=== PATIENT | female | born 1970 | race Caucasian/White ===

== ENCOUNTER 2018-01-14 15:37 | Observation (INO) ==
[2018-01-14] MEDS ORDERED: SODIUM CHLORIDE 0.9% 1,000 ML IV STA (16:08)
[2018-01-14] MEDS ORDERED: ONDANSETRON 4 MG/2 ML VIAL IV STA (16:08)
[2018-01-14 16:31] LABS: Basophils % 0.2 % (0.0-0.8); Eosinophils # 0.2 10*3/uL (0.0-0.87); Eosinophils % 1.9 % (0.00-10.9); Hematocrit 37.1 VOL% (35.7-47.0); Hemoglobin 12.8 GM/DL (12.0-16.0); Immature Granulocytes % 0.3 %; Immature Granulocytes Absolute 0.03 #; Lymphocytes # 1.8 10*3/uL (1.4-4.0); Lymphocytes % 17.9 % (21.3-54.2); Mean Corpuscular HGB Conc 34.5 GM/DL (32-36); Mean Corpuscular Hemoglobin 32 PG (27-34); Mean Corpuscular Volume 92.5 FL (87-102); Mean Platelet Volume 12.5 FL (9.6-12.0); Monocytes # 0.7 10*3/uL (0.11-0.8); Neutrophils # 7.4 10*3/uL (1.4-7.4); Neutrophils % 72.7 % (38.7-73.9); Platelet Count 214 T/CUMM (130-400); Red Blood Count 4.01 MC/CUMM (3.8-5.5); Red Cell Distribution Width 14.7 % (9.3-17.3); White Blood Count 10.2 T/CUMM (4-12)
[2018-01-14 16:34] LABS: Apearance,Urine CLOUDY (Clear); Bacteria,Urine Occasional /HPF (Few); Bilirubin,Urine Negative (Negative); Blood, Urine Negative (Negative); Glucose,Urine (UA) >=500 mg/dL (Negative); Ketones,Urine 5 mg/dL (Negative); Mucus,Urine Occasional /LPF (Occasional); Nitrite,Urine Negative (Negative); Protein,Urine Negative; RBC,Urine 2 /HPF (0-4); Squamous Epithelial Cell,Urine Moderate /HPF (0-10); Urine Color Yellow (Yellow); Urine Specific Gravity 1.025 (1.001-1.035); Urine Urobilinogen < 2.0 EU/DL (0.2-1.0); WBC,Urine <1 /HPF (0-6)
[2018-01-14] MEDS ORDERED: DEXTROSE 50% 25 GM/50 ML VIAL IV PRN ×2 (16:59→20:01)
[2018-01-14] MEDS ORDERED: GLUCAGON 1 MG VIAL IM PRN ×2 (16:59→20:01)
[2018-01-14 17:17] LABS: Albumin 3.5 G/DL (3.4-5.0); Bilirubin,Total 0.6 MG/DL (0.2-1.0); Calcium 9.4 MG/DL (8.5-10.1); Osmolality,Calculated 284.3 MOS/KG (273-304); Potassium 3.5 MMOL/L (3.5-5.1); Total Protein 8.1 G/DL (6.4-8.3)
[2018-01-14] MEDS ORDERED: ACETAMINOPHEN 325 MG TABLET PO PRN (20:01)
[2018-01-14] MEDS ORDERED: ONDANSETRON 4 MG/2 ML VIAL IV PRN (20:01)
[2018-01-14] MEDS ORDERED: HYDROmorphone 2 MG/1 ML VIAL IV PRN (20:01)
[2018-01-14] MEDS ORDERED: ATORVASTATIN 40 MG TABLET PO SCH (22:27)
[2018-01-14] MEDS: cefOXitin 2,000 MG in SYRINGE 1 EACH IV SCH (22:49)
[2018-01-14] MEDS: LACTATED RINGERS 1,000 ML IV SCH (22:49)
[2018-01-14] MEDS: ATENOLOL 50 MG TABLET PO SCH (22:50)
[2018-01-14] MEDS: CARBIDOPA/LEVODOPA 25-100 MG TABLET PO SCH (22:50)
[2018-01-14] MEDS: LOSARTAN 50 MG TABLET PO SCH (22:51)
[2018-01-14] MEDS: INSULIN LISPRO 100 UNIT/ML SUBCUT SCH ×2 (22:53→23:35)
[2018-01-15] MEDS: cefOXitin 2,000 MG in SYRINGE 1 EACH IV SCH ×3 (03:47→14:10)
[2018-01-15] MEDS: LACTATED RINGERS 1,000 ML IV SCH ×2 (05:39→13:04)
[2018-01-15] MEDS ORDERED: FAMOTIDINE 20 MG TABLET PO ONE (07:21)
[2018-01-15] MEDS ORDERED: DIAZEPAM 5 MG TABLET PO ONE (07:21)
[2018-01-15] MEDS ORDERED: ENOXAPARIN 40 MG/0.4 ML SYRINGE SUBCUT SCH (09:00)
[2018-01-15] MEDS ORDERED: PANTOPRAZOLE 40 MG TABLET PO SCH (09:00)
[2018-01-15] MEDS ORDERED: POTASSIUM CHLORIDE 20 MEQ TABLET PO PRN (09:15)
[2018-01-15] MEDS ORDERED: FUROSEMIDE 20 MG TABLET PO PRN (09:15)
[2018-01-15] MEDS ORDERED: Adalimumab [Humira] 40 MG IJ SCH (09:15)
[2018-01-15 09:31] LABS: Bilirubin,Total 0.6 MG/DL (0.2-1.0); Calcium 8.8 MG/DL (8.5-10.1); Osmolality,Calculated 287.3 MOS/KG (273-304); Potassium 3.9 MMOL/L (3.5-5.1)
[2018-01-15] MEDS: INSULIN LISPRO 100 UNIT/ML SUBCUT SCH ×2 (10:01→12:42)
[2018-01-15] MEDS ORDERED: DEXTROSE 50% 25 GM/50 ML VIAL IV PRN (10:51)
[2018-01-15] MEDS ORDERED: GLUCAGON 1 MG VIAL IM PRN (10:51)
[2018-01-15] MEDS: CARBIDOPA/LEVODOPA 25-100 MG TABLET PO SCH (11:13)
[2018-01-15] MEDS: LOSARTAN 50 MG TABLET PO SCH (11:13)
[2018-01-15] MEDS: ATENOLOL 50 MG TABLET PO SCH (11:14)
[2018-01-15 11:32] VITALS: BP 136/78
[2018-01-16] MEDS ORDERED: ATORVASTATIN 40 MG TABLET PO SCH (09:00)
[2018-01-16] MEDS ORDERED: LOSARTAN 50 MG TABLET PO SCH (09:00)
[2018-01-16] MEDS ORDERED: ATENOLOL 100 MG TABLET PO SCH (09:00)
== END 2018-01-15 14:09 | disposition home or self-care (01) ==
LOC: N.ED 15:37 → N.EDINP 15:37 → N.3E 18:18
PROVIDERS: ADMIT Surgery; ATTEND Surgery